=== PATIENT | male | born 1995 | race American Indian/Alaskan Native ===

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

== ENCOUNTER 2020-10-26 10:01 | Emergency (ER) | payer MEDICAID, OTHER ==
[2020-10-26 10:26] VITALS: BP 127/74
[2020-10-26] MEDS ORDERED: ONDANSETRON 4 MG ODT TAB PO ONE (12:03)
--- NOTE | 2020-10-26 13:03 | Emergency Department Report ---
<ABELARDO PENA - Last Filed: 10/26/20 12:57> ED N/V/D HPI - General Chief complaint: Nausea/Vomiting/Diarrhea Stated complaint: VOMITING Time Seen by Provider: 10/26/20 12:31 Source: patient Mode of arrival: Ambulatory Limitations: No Limitations - History of Present Illness Initial comments: 24-year-old -[place] male presents to the emergency room reporting that he has been vomiting since this morning when he got up. Patient denies any abdominal pain. Patient states that he last vomited just prior to arrival here in the emergency room. Patient reports that he was out at a club last night and had been drinking alcohol beverages which she reports were strong of alcohol. Denies any abdominal pain no nausea at this time. Patient states has been able to drink fluids and has been drinking and Min[employer]id fruit punch drink. MD complaint: vomiting -: This morning Description of Vomiting: bilious Associated Abdominal Pain: No Pain Scale: 0 Consistency: now resolved Improves with: vomiting Context: alcohol abuse Associated Symptoms: denies other symptoms. denies: myalgias, chest pain, cough, diaphoresis, fever/chills, headaches, loss of appetite, shortness of breath, weakness - Related Data Previous Rx's Medication Instructions Recorded Last Taken Type Naproxen [Naprosyn] 500 mg PO BID #30 tablet 06/29/16 Unknown Rx Allergies Allergy/AdvReac Type Severity Reaction Status Date / Time cefdinir [From Omnicef] Allergy Rash Verified 06/29/16 06:05 ED Review of Systems Comment: All other systems reviewed and negative ED Past Medical Hx - Past Medical History Previous Medical History?: No - Surgical History Past Surgical History?: No - Social History Smoking Status: Current Every Day Smoker Substance Use Type: Alcohol, Marijuana - Medications Home Medications: Home Medications Medication Instructions Recorded Confirmed Last Taken Type Naproxen [Naprosyn] 500 mg PO BID #30 tablet 06/29/16 Unknown Rx ED Physical Exam - General Limitations: No Limitations General appearance: alert, in no apparent distress - Head Head exam: Present: atraumatic, normocephalic - Eye Eye exam: Present: normal appearance - ENT ENT exam: Present: mucous membranes moist - Neck Neck exam: Present: normal inspection - Respiratory Respiratory exam: Present: normal lung sounds bilaterally. Absent: respiratory distress - Cardiovascular Cardiovascular Exam: Present: regular rate, normal rhythm. Absent: systolic murmur, diastolic murmur, rubs, gallop - GI/Abdominal GI/Abdominal exam: Present: soft, normal bowel sounds. Absent: distended, tenderness, guarding - Rectal Rectal exam: Present: deferred - Extremities Exam Extremities exam: Present: normal inspection - Back Exam Back exam: Present: normal inspection - Neurological Exam Neurological exam: Present: alert, oriented X3, normal gait - Psychiatric Psychiatric exam: Present: normal affect, normal mood - Skin Skin exam: Present: warm, dry, intact, normal color. Absent: rash ED Medical Decision Making - Medical Decision Making 24-year-old -[place] male presents to the emergency room reporting that he has been vomiting since this morning when he got up. Patient denies any abdominal pain. Patient states that he last vomited just prior to arrival here in the emergency room. Patient reports that he was out at a club last night and had been drinking alcohol beverages which she reports were strong of alcohol. Denies any abdominal pain no nausea at this time. Patient states has been able to drink fluids and has been drinking and Min[employer] fruit punch drink. Patient's vomiting has resolved since being here in the emergency room. Patient denies any abdominal pain. Patient was given a Zofran. He is drinking Min[employer] fruit punch. Patient is referred to [facility]. Patient is cooperative able to answer questions appropriately has capacity to make decisions and is alert and oriented x3. ED Disposition Clinical Impression: Vomiting alone Disposition: DC-01 TO HOME OR SELFCARE Is pt being admited?: No Does the pt Need Aspirin: No Condition: Stable Instructions: Nausea and Vomiting, Adult, [id number] Additional Instructions: I recommend avoiding sugary drinks. Increase your fluid intake with water or Gatorade. Advance your diet with crackers soup bananas. Referrals: [facility] [Provider Group] - 3-5 Days Forms: Work/School Release Form(ED) <ELISE BROCK - Last Filed: 10/26/20 15:00> ED Review of Systems ROS: Stated complaint: VOMITING Other details as noted in HPI ED Course Vital Signs 10/26/20 10/26/20 10/26/20 10:24 12:18 13:06 Temperature 97.9 F Pulse Rate 62 Respiratory 16 18 16 Rate Blood Pressure 127/74 O2 Sat by Pulse 100 Oximetry Critical care attestation.: If time is entered above; I have spent that time in minutes in the direct care of this critically ill patient, excluding procedure time. ED Disposition Is pt being admited?: No Does the pt Need Aspirin: No
== END 2020-10-26 13:06 | disposition home or self-care (01) ==
LOC: ED 10:01
DX: R11.10 Vomiting, unspecified (principal); F17.290 Nicotine dependence, other tobacco product, uncomplicated; Z88.1 Allergy status to other antibiotic agents
CPT/HCPCS: 99282; Q0162